=== PATIENT | female | born 1960 | race Two or more races ===

== ENCOUNTER 2025-03-05 06:51 | Outpatient (CLI) | payer OTHER ==
[2025-03-05 07:26] LABS: URINE APPEARANCE Clear; URINE BILIRRUBIN Negative (NEGATIVE); URINE BLOOD Negative; URINE COLOR Yellow; URINE GLUCOSE Negative (NEGATIVE); URINE KETONE 15 (NEGATIVE); URINE LEUKOCYTE Negative; URINE NITRATE Negative; URINE PROTEIN Negative (NEGATIVE); URINE UROBILINOGEN 0.2 E.U./dl
[2025-03-05 07:31] LABS: URINE BACTERIA 4.8 uL (0.0-1933); URINE EPITHELIAL CELLS 8.9 uL (0.0-38.8); URINE RBC 4.2 uL (0.0-20.8); URINE WBC 5.9 uL (0.0-23.2)
[2025-03-05 07:33] LABS: BASO % 0.7 % (0.1-1.2); EOS # 0.15 (0.04-0.54); EOS % 2.8 % (0.7-7.0); LYMPH # 1.11 (1.18-3.74); LYMPH % 20.5 % (19.3-53.1); MEAN PLATELET VOLUME 10.70 fl (9.4-12.4); MONO # 0.75 (0.24-0.82); NEUT # 3.35 (1.56-6.13); NEUT % 61.9 % (34.0-71.1); RED CELL DISTRIBUTION WIDTH 18.9 % (11.6-14.4)
[2025-03-05 07:47] LABS: INR 1.0; URINE CAST 0.29 uL (0.0-1.40)
[2025-03-05 07:48] LABS: MONO % 13.9 % (4.7-12.5)
[2025-03-05 08:00] LABS: ALT/SGPT 18.0 U/L (12-78); AST/SGOT 15.0 U/L (15-37); BILIRUBIN TOTAL 0.35 mg/dL (0.3-1.2); BUN CREA RATIO 15.0 (7.0-25.0); CREATININE SERUM 0.71 mg/dL (0.55-1.02); GFR 82.88; GLOBULINA 3.7 G/DL (2.4-3.5); GLUCOSE FASTING 122.0 mg/dL (65-100); OSMOLALITY SERUM 284.0 MOSM/KG (275-295)
== END 2025-03-05 07:07 | disposition home or self-care (01) ==
LOC: LAB 06:51
PROVIDERS: ATTEND Surgery
DX: C18.6 Malignant neoplasm of descending colon (principal); R19.4 Change in bowel habit; R19.5 Other fecal abnormalities

== ENCOUNTER 2025-03-12 12:00 | Inpatient (IN) | payer OTHER ==
[~2025-03-12] VITALS: Ht 152.4 cm; Wt 64.4 kg
[2025-03-12] MEDS ORDERED: CRESTOR40 MG (13:49)
[2025-03-12] MEDS ORDERED: COZAAR100 MG PO (13:49)
[2025-03-12] MEDS ORDERED: NORVASC5 MG PO (13:49)
[2025-03-12] MEDS ORDERED: GLIMEPIRIDE1 M1 PO (13:49)
[2025-03-12] MEDS ORDERED: METFORMIN HCL500 M3 PO (13:50)
[2025-03-12] MEDS ORDERED: LEVOTHYROXINE25 MCG PO (13:50)
[2025-03-12] MEDS ORDERED: MULTI-VITAMIN1 EACH PO (13:51)
[2025-03-19] MEDS ORDERED: BUPIVACAINE HCL/Mpf 0.5% 10ML VIAL ONE (07:08)
[2025-03-19] MEDS ORDERED: LIDOCAINE HCL 1%/EPINEPHRINE 20ML VIAL IJ ONE (07:08)
[2025-03-19] MEDS ORDERED: CEFTRIAXONE SODIUM 2,000 MG VIAL ONE (07:09)
[2025-03-19] MEDS ORDERED: METRONIDAZOLE/SODIUM CHLORIDE 500 MG/100 ML PIGGYBACK IV ONE (07:09)
[2025-03-19] MEDS ORDERED: SUGAMMADEX SODIUM 200 MG/2 ML VIAL IV ONE (08:58)
[2025-03-19] MEDS ORDERED: MORPHINE SULFATE 4 MG/ML CARTRIDGE IV PRN (09:45)
[2025-03-19] MEDS ORDERED: ONDANSETRON HCL 2 MG/ML VIAL IV PRN (09:45)
[2025-03-19] MEDS ORDERED: OxyCODONE HCL 5 MG TABLET (ROXICODONE) PO PRN (09:45)
[2025-03-19] MEDS ORDERED: DEXTROSE 50 % IN WATER 0.5 G/ML VIAL IV PRN ×2 (09:45→12:30)
[2025-03-19] MEDS ORDERED: 0.9 % SODIUM CHLORIDE 1,000 ML IV SCH (09:45)
[2025-03-19 11:14] LABS: BASO % 0.3 % (0.1-1.2); EOS # 0.07 (0.04-0.54); EOS % 0.6 % (0.7-7.0); LYMPH # 0.79 (1.18-3.74); LYMPH % 6.9 % (19.3-53.1); MEAN PLATELET VOLUME 11.10 fl (9.4-12.4); MONO # 0.81 (0.24-0.82); MONO % 7.0 % (4.7-12.5); NEUT # 9.79 (1.56-6.13); NEUT % 84.9 % (34.0-71.1); RED CELL DISTRIBUTION WIDTH 18.3 % (11.6-14.4)
[2025-03-19 12:11] LABS: BUN CREA RATIO 17.0 (7.0-25.0); CREATININE SERUM 0.64 mg/dL (0.55-1.02); GFR 93.42; OSMOLALITY SERUM 288.0 MOSM/KG (275-295)
[2025-03-19 12:12] LABS: GLUCOSE FASTING 260.0 mg/dL (65-100)
[2025-03-19] MEDS ORDERED: INSULIN LISPRO 1,000 UNIT/10 ML UNITS SUBCUTANEO PRN (12:30)
[2025-03-19] MEDS ORDERED: ENALAPRILAT DIHYDRATE 1.25 MG/ML VIAL IV PRN (12:45)
[2025-03-19] MEDS ORDERED: HYOSCYAMINE SULFATE 0.125 MG TAB.SUBL SL SCH (13:00)
[2025-03-19] MEDS ORDERED: INSULIN LISPRO 1,000 UNIT/10 ML UNITS SUBCUTANEO ONE (13:31)
[2025-03-19] MEDS ORDERED: ACETAMINOPHEN 500 MG GEL..CAP PO SCH (14:00)
[2025-03-19 14:22] VITALS: BP 142/66; O2SAT 95
[2025-03-19 15:44] VITALS: BP 148/72; O2SAT 94
[2025-03-19] MEDS ORDERED: METRONIDAZOLE/SODIUM CHLORIDE 500 MG/100 ML PIGGYBACK IV SCH (17:00)
[2025-03-19] MEDS ORDERED: GABAPENTIN 300 MG CAPSULE PO SCH (17:00)
[2025-03-19] MEDS ORDERED: FAMOTIDINE/PF 20 MG/2 ML VIAL IV PUSH SCH (21:00)
[2025-03-19] MEDS ORDERED: CELECOXIB 200 MG CAPSULE PO SCH (21:00)
[2025-03-20 00:30] VITALS: BP 138/77; O2SAT 97
[2025-03-20] MEDS ORDERED: LEVOTHYROXINE SODIUM 25 MCG TABLET PO SCH (06:00)
[2025-03-20 07:08] LABS: BASO % 0.1 % (0.1-1.2); EOS # 0.02 (0.04-0.54); EOS % 0.2 % (0.7-7.0); LYMPH # 1.04 (1.18-3.74); LYMPH % 12.0 % (19.3-53.1); MEAN PLATELET VOLUME 10.80 fl (9.4-12.4); MONO # 1.19 (0.24-0.82); NEUT # 6.41 (1.56-6.13); NEUT % 73.7 % (34.0-71.1); RED CELL DISTRIBUTION WIDTH 18.4 % (11.6-14.4)
[2025-03-20 07:26] LABS: MONO % 13.7 % (4.7-12.5)
[2025-03-20] MEDS ORDERED: LOSARTAN POTASSIUM 100 MG TABLET PO SCH (09:00)
[2025-03-20] MEDS ORDERED: AMLODIPINE BESYLATE 5 MG TABLET PO SCH (09:00)
[2025-03-20 10:37] LABS: BUN CREA RATIO 11.0 (7.0-25.0); CREATININE SERUM 0.62 mg/dL (0.55-1.02); GFR 96.91; GLUCOSE FASTING 114.0 mg/dL (65-100); OSMOLALITY SERUM 286.0 MOSM/KG (275-295)
[2025-03-20 11:14] VITALS: BP 132/63; O2SAT 95
[2025-03-20 16:44] VITALS: BP 113/61; O2SAT 94
[2025-03-20] MEDS ORDERED: POLYETHYLENE GLYCOL 3350 17 GM BLIST.PACK PO SCH (17:00)
[2025-03-20] MEDS ORDERED: ROSUVASTATIN CALCIUM 20 MG TABLET PO SCH (17:00)
[2025-03-20] MEDS ORDERED: ENOXAPARIN SODIUM 40 MG/0.4 ML SYRINGE SUBCUTANEO SCH (17:00)
[2025-03-21 00:43] VITALS: BP 119/64; O2SAT 95
[2025-03-21 06:53] LABS: BASO % 0.4 % (0.1-1.2); EOS # 0.07 (0.04-0.54); EOS % 0.8 % (0.7-7.0); LYMPH # 0.93 (1.18-3.74); LYMPH % 11.1 % (19.3-53.1); MEAN PLATELET VOLUME 11.70 fl (9.4-12.4); MONO # 0.81 (0.24-0.82); MONO % 9.7 % (4.7-12.5); NEUT # 6.50 (1.56-6.13); NEUT % 77.6 % (34.0-71.1); RED CELL DISTRIBUTION WIDTH 19.1 % (11.6-14.4)
[2025-03-21 07:58] LABS: BUN CREA RATIO 9.0 (7.0-25.0); CREATININE SERUM 0.57 mg/dL (0.55-1.02); GFR 106.78; GLUCOSE FASTING 98.0 mg/dL (65-100); OSMOLALITY SERUM 292.0 MOSM/KG (275-295)
[2025-03-21 08:00] VITALS: BP 139/65; O2SAT 96
[2025-03-21] MEDS ORDERED: ENOXAPARIN SODIUM 40 MG/0.4 ML SYRINGE SUBCUTANEO SCH (09:00)
[2025-03-21] MEDS ORDERED: POTASSIUM PHOS,M-BASIC-D-BASIC 3 MM/ML VIAL IV NR (11:45)
[2025-03-21 16:00] VITALS: BP 118/58; O2SAT 96
[2025-03-22 01:30] VITALS: BP 127/78; O2SAT 98
[2025-03-22 07:46] LABS: BASO % 0.4 % (0.1-1.2); EOS # 0.19 (0.04-0.54); EOS % 2.6 % (0.7-7.0); LYMPH # 0.98 (1.18-3.74); LYMPH % 13.2 % (19.3-53.1); MEAN PLATELET VOLUME 11.40 fl (9.4-12.4); MONO # 0.75 (0.24-0.82); MONO % 10.1 % (4.7-12.5); NEUT # 5.46 (1.56-6.13); NEUT % 73.2 % (34.0-71.1); RED CELL DISTRIBUTION WIDTH 19.2 % (11.6-14.4)
[2025-03-22 08:26] VITALS: BP 150/63; O2SAT 95
[2025-03-22 08:33] LABS: ALT/SGPT 19.0 U/L (12-78); AST/SGOT 20.0 U/L (15-37); BILIRUBIN TOTAL 0.22 mg/dL (0.3-1.2); BUN CREA RATIO 9.0 (7.0-25.0); CREATININE SERUM 0.56 mg/dL (0.55-1.02); GFR 108.99; GLOBULINA 3.3 G/DL (2.4-3.5); GLUCOSE FASTING 131.0 mg/dL (65-100); OSMOLALITY SERUM 293.0 MOSM/KG (275-295)
[2025-03-22] MEDS ORDERED: PEPCID AC20 MG PO (10:30)
[2025-03-22] MEDS ORDERED: DICY20TA PO (10:30)
[2025-03-22] MEDS ORDERED: TRAM1TAB98 PO (10:30)
== END 2025-03-22 12:41 | disposition home or self-care (01) | DRG 331 ==
LOC: EDUNIT# 12:00 → O/R 03-19 06:00 → SURH 03-19 07:00 → O/R 03-21 13:11 → SURH 03-21 13:12
PROVIDERS: Internal Medicine Geriatric Medicine; ADMIT Surgery; ATTEND Surgery
PROC: 07BB4ZZ Excision of Mesenteric Lymphatic, Percutaneous Endoscopic Approach (ICD-10-PCS; 2025-03-19)
PROC: 0DTG4ZZ Resection of Left Large Intestine, Percutaneous Endoscopic Approach (ICD-10-PCS; principal; 2025-03-19 07:00)
DX: C18.6 Malignant neoplasm of descending colon (principal); R59.0 Localized enlarged lymph nodes; D49.0 Neoplasm of unspecified behavior of digestive system; D64.89 Other specified anemias; R19.4 Change in bowel habit; R19.5 Other fecal abnormalities; E11.9 Type 2 diabetes mellitus without complications; I10 Essential (primary) hypertension; Z79.84 Long term (current) use of oral hypoglycemic drugs